=== PATIENT | female | born 1980 | race Asian ===

== ENCOUNTER → 2016-11-30 | Outpatient (CLI) | payer BC ==
[~2016-11-30] MED LIST: CRAN500C2 PO; LETR2TAB PO
--- NOTE | 2016-11-30 09:29 | DIAGNOSTIC IMAGING REPORT ---
HYSTEROSALPINGOGRAM HISTORY: Infertility. FLUOROSCOPY TIME: 0.4 minutes. 5 fluoroscopic images submitted. TECHNIQUE: The cervix was cannulated by the surgery specialist-twister tender paper and water soluble contrast was instilled into the uterus under fluoroscopic guidance. Multiple spot images were obtained. FINDINGS: The uterine cavity is normal in size, shape, and position. The fallopian tubes are patent and there is free peritoneal spill bilaterally. IMPRESSION: Normal hysterosalpingogram. Electronically signed by: Srinivas Felipe M.D. 11/30/2016 9:27 AM
--- NOTE | 2016-11-30 10:10 | OPERATIVE REPORT ---
DATE OF PROCEDURE: 11/30/2016 SURGEON: Isabel Osborne D.O. PREPROCEDURE DIAGNOSIS: Female infertility. POSTPROCEDURE DIAGNOSIS: Same. PROCEDURE: Hystersalpingogram under fluoroscopic guidance. COMPLICATIONS: None. DISPOSITION: Stable and good, discharge to home. INDICATIONS FOR PROCEDURE: The patient is a 35-year-old G1, P0-0-1-0 with history of first trimester loss who is undergoing fertility workup with Dr. Castle who has recommended hystersalpingogram. DESCRIPTION OF PROCEDURE: The patient was positioned comfortably on the table in radiology. All questions were answered. She elected to proceed with the procedure. A speculum was placed in the vagina. Cervix was visualized. Betadine prep was used to cleanse the cervix and vagina. The anterior lip of the cervix was grasped with a single tooth tenaculum. The acorn uterine manipulator was placed in the cervix and the speculum was removed. Water soluble radiopaque dye was injected through the cervix under fluoroscopic guidance with the radiologist present. The uterine cavity appeared normal shape and contour. Bilateral fallopian tubes were noted and were patent as bilateral spill was noted of dye. All instruments were removed from the vagina. Excellent hemostasis was noted. The patient did have some nausea but no vomiting, and otherwise tolerated the procedure well. Following the brief period of nausea, she felt better and was feeling well prior to leaving the x-ray room. She will need to follow up with Dr. Castle in the office for future fertility workup and planning. I attest to the content of the Intraoperative Record and any orders documented therein. Any exceptions are noted below. MTDBrandy
== END | disposition home or self-care (01) ==
LOC: C.RAD 08:47
PROVIDERS: ATTEND Obstetrics & Gynecology
DX: Z31.41 Encounter for fertility testing (principal)

== ENCOUNTER → 2016-12-01 | Outpatient (CLI) | payer BC ==
--- NOTE | 2016-12-01 11:20 | DIAGNOSTIC IMAGING REPORT ---
RIGHT KNEE MRI HISTORY: Right knee pain. COMPARISON STUDY: Right knee 10/11/2016. TECHNIQUE: Multiplanar multisequence MRI of the right knee was performed according to standard department protocol without the use of contrast. FINDINGS: Menisci: The medial meniscus is intact. The lateral meniscus is also likely intact. Question tiny free edge tear at the posterior horn of the lateral meniscus seen on coronal T2 image 16 is not confirmed on additional sequences. Therefore, this may be volume averaging on this sequence. Ligaments: The anterior and posterior cruciate ligaments are intact. The medial and lateral collateral ligaments are normal in appearance. Extensor mechanism: The quadriceps tendon and patellar ligament are intact. Articular cartilage and bone: The articular cartilage is intact, and normal marrow signal intensity is seen throughout the imaged osseous structures. Joint effusion: None. Soft tissues: Intact. IMPRESSION: No evidence for internal derangement within the right knee. Electronically signed by: Srinivas Felipe M.D. 12/01/2016 11:19 AM
== END | disposition home or self-care (01) ==
LOC: C.MRI 10:05
PROVIDERS: ATTEND Family Medicine
DX: M25.561 Pain in right knee (principal)

== ENCOUNTER → 2016-12-23 | Outpatient (CLI) | payer BC ==
[2016-12-23 09:54] LABS: CALCULATED INSULIN SENSITIVITY 0.352; GLUCOSE LOG 1.9685; INSULIN FASTING 7.4 mU/L (3-25); INSULIN LOG 0.8692
[2016-12-23 09:59] LABS: THYROID STIMULATING HORMONE 0.922 uIu/ml (0.300-4.500)
[2016-12-23 10:00] LABS: PROLACTIN 8.64 ng/mL
== END ==
LOC: C.LAB 08:23
PROVIDERS: ATTEND Obstetrics & Gynecology
DX: Z31.41 Encounter for fertility testing (principal)

== ENCOUNTER → 2017-01-05 | Outpatient (CLI) | payer BC | END | disposition home or self-care (01) | LOC: C.PAPS 10:09 | PROVIDERS: ATTEND Obstetrics & Gynecology | DX: Z01.419 Encounter for gynecological examination (general) (routine) without abnormal findings (principal) ==

== ENCOUNTER 2017-07-11 18:17 | Emergency (ER) | payer BC ==
[~2017-07-11] VITALS: Ht 162.6 cm; Wt 62.3 kg
[~2017-07-11 18:17] MED LIST changes: -LETR2TAB PO
[2017-07-11 18:23] VITALS: Ht 162.6 cm; Wt 62.3 kg
--- NOTE | 2017-07-11 19:08 | EMERGENCY ROOM VISIT NOTE ---
History Report prepared by Abby: Ritesh Whitley Under the Supervision of: Dr. Boubacar Soliman D.O. First contact with patient: 18:43 Chief Complaint: SHORTNESS OF BREATH Stated Complaint: SOB,NAUSEA, REACTION TO MEDS History of Present Illness The patient is a 36 year old female who presents to the Emergency Room with complaints of constant shortness of breath starting this morning. The patient states that she has taken a new medication for infertility starting yesterday, and she has had these symptoms since then. She additionally states that she is nauseous, having blurry vision, and some chest pain. The patient states that she took the medication this morning around 0930. Source of History: patient Onset: this morning Position: other (global) Quality: other (shortness of breath) Timing: constant Associated Symptoms: + chest pain, + nausea Note: Associated symptoms: Blurry vision Review of Systems See HPI for pertinent positives & negatives. A total of 10 systems reviewed and were otherwise negative. Past Medical & Surgical Surgical Problems: (1) History of dilatation and curettage Family History Patient reports no known family medical history. Social History Smoking Status: Never Smoker Alcohol Use: none Marital Status: Housing Status: lives with family Occupation Status: employed Current/Historical Medications Scheduled Cranberry (Vaccinium Macrocarp (Cranberry), 1 CAP PO DAILY Physical Exam Vital Signs Date Time Temp Pulse Resp B/P (MAP) Pulse Ox O2 Delivery O2 Flow Rate FiO2 17 18:23 36.4 64 32 130/76 100 Room Air Physical Exam CONSTITUTIONAL/VITAL SIGNS: Reviewed / noted above. GENERAL: Non-toxic in appearance. INTEGUMENTARY: Warm, dry, and [place]. HEAD: Normocephalic. EYES: without scleral icterus or trauma. ENT/OROPHARYNX: clear and moist. LYMPHADENOPATHY/NECK: Is supple without lymphadenopathy or meningismus. RESPIRATORY: Lungs clear and equal. CARDIOVASCULAR: Regular rate and rhythm. GI/ABDOMEN: Soft and nontender. No organomegaly or pulsatile mass. No rebound or guarding. Normal bowel sounds. EXTREMITIES: Warm and well perfused. BACK: No CVA tenderness. NEUROLOGICAL: Intact without focal deficits. PSYCHIATRIC: normal affect. MUSCULOSKELETAL: Normally developed with good muscle tone. Medical Decision & Procedures ED Course 184: Previous medical records were reviewed. The patient was evaluated in room B8. A complete history and physical examination was performed. Medical Decision the differential was considered includes acute myocardial infarction, acute coronary syndrome, myocarditis, pericarditis, pericardial effusions /tamponade, esophageal perforation, thoracic aortic dissection, pulmonary embolism, pneumonia, pneumothorax, pancreatitis, shingles, acute cholecystitis, perforated abdominal viscus. This is a 36-year-old female who presents to the ED with a chief complaint of shortness of breath and a little nausea. The patient feels that she might be having a reaction to medication. She states that she is taking Femara for infertility. The patient states that she developed some difficulty breathing and some blurring of her vision as well as a little nausea and a slight chest pain in the center of her chest this afternoon. She took her medication once yesterday and once earlier this morning. The patient reports that she thinks her symptoms are related to a side effect of the medication. Her vital signs are normal. Her physical exam was normal. I discussed running tests on the patient such as blood work and chest x-ray as well as EKG and possible CT scan of the chest but the patient declined this. She feels that her symptoms are related to a reaction to the medication. I told her that if this was the case, her symptoms should resolve in the next 2-3 days. She was advised to return the emergency Department should she develop worsening or new symptoms. Medication Reconcilliation Current Medication List: was personally reviewed by me Blood Pressure Screening Patient's blood pressure: Normal blood pressure Impression Primary Impression: Dyspnea Additional Impressions: Substernal precordial chest pain Blurred vision Scribe Attestation The scribe's documentation has been prepared under my direction and personally reviewed by me in its entirety. I confirm that the note above accurately reflects all work, treatment, procedures, and medical decision making performed by me. Departure Information Dispostion Home / Self-Care Referrals Naomi Moreland M.D. (PCP) Patient Instructions My [facility] Additional Instructions If symptoms are related to a reaction to your medication, your symptoms should resolve in the next 2-3 days. If symptoms persist, return to the emergency department or follow-up with your doctor for recheck. Return for worsening or new symptoms. Follow-up with your doctor for further care and evaluation in 1-2 days. Return to the emergency department for worsening or new symptoms or any concerns. You have been examined and treated today on an emergency basis only. This is not a substitute for, or an effort to provide, complete comprehensive medical care. It is impossible to recognize and treat all injuries or illnesses in a single emergency department visit. It is therefore important that you follow up closely with your doctor. Call as soon as possible for an appointment. Problem Qualifiers
[2017-07-11 19:15] VITALS: BP 130/76; PULSE 64; TEMP 36.4; O2SAT 100
[2017-07-11] MEDS ORDERED: LETR2TAB PO (19:19)
== END 2017-07-11 19:16 | disposition home or self-care (01) ==
LOC: C.EDB 18:18
DX: R06.00 Dyspnea, unspecified (principal); R07.2 Precordial pain; H53.8 Other visual disturbances; Z98.890 Other specified postprocedural states

== ENCOUNTER → 2017-08-04 | Outpatient (CLI) | payer BC ==
[~2017-08-04] MED LIST changes: -CRAN500C2 PO; +LETR2TAB PO
== END | disposition home or self-care (01) ==
LOC: C.LAB1850 10:35
PROVIDERS: ATTEND Obstetrics & Gynecology
DX: Z32.00 Encounter for pregnancy test, result unknown (principal)

== ENCOUNTER → 2017-08-25 | Outpatient (CLI) | payer BC | END | disposition home or self-care (01) | LOC: C.LAB1850 09:39 | PROVIDERS: ATTEND Obstetrics & Gynecology | DX: O20.9 Hemorrhage in early pregnancy, unspecified (principal) ==

== ENCOUNTER → 2017-09-05 | Outpatient (CLI) | payer BC ==
[2017-09-05 10:09] LABS: BASO % 0.5 %; BASO ABS # 0.04 K/uL (0-0.2); COMPLETE YES; EOS % 1.2 %; HEMATOCRIT 40.3 % (37-47); IG% 0.3 %; LYMPH % 16.6 %; LYMPH ABS # 1.23 K/uL (1.2-3.4); MEAN CELL VOLUME 87.2 fL (80-100); MEAN CORPUSCULAR HEMOGLOBIN 30.1 pg (25-34); MEAN CORPUSCULAR HGB CONC 34.5 g/dl (32-36); MEAN PLATELET VOLUME 9.4 fL (7.4-10.4); MONO % 6.3 %; NEUT % 75.1 %; PLATELET COUNT 282 K/uL (130-400); RED BLOOD COUNT 4.62 M/uL (4.2-5.4); WHITE BLOOD COUNT 7.42 K/uL (4.8-10.8)
[2017-09-05 11:18] LABS: URINE APPEARANCE CLEAR (CLEAR); URINE BILIRUBIN NEG (NEG); URINE COLOR YELLOW; URINE EPITHELIAL CELL AUTO >30 /lpf (0-5); URINE NITRITE NEG (NEG); URINE PH 5.5 (4.5-7.5); URINE SPECIFIC GRAVITY 1.023 (1.000-1.030); UROBILINOGEN NEG (NEG)
[2017-09-05 11:20] LABS: MANUAL MICROSCOPIC REQUIRED? NO; REVIEW REQ? NO
[2017-09-06 14:57] LABS: CHLAMYDIA TRACH RNA*** NOT DETECTED (NOT DETECTED); GC (NEIS GONORRHOEAE)RNA** NOT DETECTED (NOT DETECTED)
== END | disposition home or self-care (01) ==
LOC: C.LAB1850 09:12
PROVIDERS: ATTEND Obstetrics & Gynecology
DX: Z34.91 Encounter for supervision of normal pregnancy, unspecified, first trimester (principal)

== ENCOUNTER → 2017-11-02 | Outpatient (CLI) | payer BC ==
[2017-11-02 13:20] LABS: GTGD 50 Grams
== END | disposition home or self-care (01) ==
LOC: C.LAB1850 11:09
PROVIDERS: ATTEND Obstetrics & Gynecology
DX: O09.512 Supervision of elderly primigravida, second trimester (principal); Z3A.00 Weeks of gestation of pregnancy not specified

== ENCOUNTER → 2017-11-15 | Outpatient (CLI) | payer BC ==
[2017-11-15 16:20] LABS: URINE APPEARANCE CLEAR (CLEAR); URINE BILIRUBIN NEG (NEG); URINE COLOR YELLOW; URINE NITRITE NEG (NEG); URINE PH 6.5 (4.5-7.5); URINE SPECIFIC GRAVITY 1.012 (1.000-1.030); UROBILINOGEN NEG (NEG)
[2017-11-15 16:25] LABS: MANUAL MICROSCOPIC REQUIRED? YES; REVIEW REQ? NO
[2017-11-15 16:55] LABS: URINE BACTERIA 1+ (NEG); URINE RBC 0-4 /hpf (0-4)
== END | disposition home or self-care (01) ==
LOC: C.LABSPEC 15:51
PROVIDERS: ATTEND Obstetrics & Gynecology
DX: O26.899 Other specified pregnancy related conditions, unspecified trimester (principal)

== ENCOUNTER → 2017-11-15 | Outpatient (CLI) | payer BC | END | disposition home or self-care (01) | LOC: C.LAB1850 08:39 | PROVIDERS: ATTEND Obstetrics & Gynecology | DX: O28.1 Abnormal biochemical finding on antenatal screening of mother (principal) ==

== ENCOUNTER 2017-12-09 17:13 | Outpatient (CLI) | payer OTHER | END 2017-12-09 17:40 | disposition home or self-care (01) | LOC: C.OPB 17:13 → C.LD 17:13 → C.OPB 17:40 | PROVIDERS: ATTEND Obstetrics & Gynecology | DX: O36.8120 Decreased fetal movements, second trimester, not applicable or unspecified (principal); Z3A.22 22 weeks gestation of pregnancy ==

== ENCOUNTER 2018-01-17 17:27 | Emergency (ER) | payer OTHER ==
[~2018-01-17] VITALS: Ht 162.6 cm; Wt 75.9 kg
[2018-01-17 17:27] VITALS: TEMP 36.5; O2SAT 98
[2018-01-17] MEDS ORDERED: PRENTAB26 PO (17:48)
--- NOTE | 2018-01-17 18:01 | EMERGENCY ROOM VISIT NOTE ---
History Report prepared by Abby: Ritesh Whitley Under the Supervision of: Dr. Boubacar Holley M.D. First contact with patient: 17:46 Chief Complaint: SHORTNESS OF BREATH Stated Complaint: SOB, DIZZINESS History of Present Illness The patient is a 37 year old female who presents to the Emergency Room with complaints of on and off shortness of breath starting an hour ago which is worsened with walking around. The patient is denying any chest pain or vaginal bleeding. She additionally states that she has some lower abdominal pain last night. The patient reports that she is currently , and she thinks that this has been making it hard to breathe as it grows. She notes that she does not have a past medical history, and she states that earlier in the she had vaginal bleeding. The states that earlier today the patient was in a crowded room earlier with no air circulation. She states that she is feeling better now that she is out of that room. The patient states that she has been taking vitamins. Source of History: patient, spouse/significant other Onset: an hour ago Position: other (global) Quality: other (shortness of breath) Timing: other (on and off) Modifying Factors (Worsening): other (walking around) Associated Symptoms: No chest pain Review of Systems See HPI for pertinent positives & negatives. A total of 10 systems reviewed and were otherwise negative. Past Medical & Surgical Surgical Problems: (1) History of dilatation and curettage Family History Patient reports no known family medical history. Social History Smoking Status: Never Smoker Alcohol Use: none Marital Status: Housing Status: lives with family Occupation Status: employed Current/Historical Medications Scheduled Multivit/Min/Iron/Fol Ac/Pren ( Vitamin), 1 TAB PO DAILY Allergies Coded Allergies: No Known Allergies (Unverified , 01/17/18) Physical Exam Vital Signs Date Time Temp Pulse Resp B/P (MAP) Pulse Ox O2 Delivery O2 Flow Rate FiO2 01/17/18 19:58 74 20 119/79 98 01/17/18 19:30 81 22 119/78 98 Room Air 01/17/18 18:39 83 15 101/73 99 Room Air 01/17/18 17:53 71 01/17/18 17:27 98 Room Air 01/17/18 17:27 36.5 72 16 124/73 98 Room Air 01/17/18 17:27 98 Room Air Physical Exam GENERAL: Patient is a healthy-appearing well-nourished female HEAD: Normocephalic atraumatic EYES: Ocular movements intact pupils equal and react to light OROPHARYNX mucous membranes are moist no exudates present no erythema or edema present NECK: Supple no nuchal rigidity CHEST: Good equal expansion LUNGS: Clear and equal to auscultation CARDIAC: Normal S1 and S2 ABDOMEN: Gravid abdomen. Soft nontender no guarding BACK: No CVA tenderness EXTREMITIES: No pain upon palpation normal muscle strength in all groups no clubbing cyanosis or edema NEURO: Patient is following commands and answering questions appropriately. Alert and oriented x3 Cranial Nerves 2-12 grossly intact Medical Decision & Procedures ER Provider Diagnostic Interpretation: LIMITED (US) CLINICAL HISTORY: Pelvic cramping. Dizziness. COMPARISON STUDY: None. FINDINGS: The cervix is not well visualized due to the shadowing from the head but appears closed. The cervix measures approximately 2.8 cm in length. The fetus is in a cephalic presentation. heart rate is 137 beats per minutes. There is a right posterior lateral placenta. No subchorionic hematoma. anatomic survey was not performed. Amniotic fluid index is 13 cm. The age based on the biparietal diameter, head conference, abdominal or coverage, and length is approximately 28 weeks and 4 days plus or minus one week. Estimated weight is 2 pounds and 10 ounces +/- 6 ounces. IMPRESSION: 1. Single viable 28 week and 4 day intrauterine gestation. heart rate is 137 bpm. 2. No evidence for subchorionic hematoma. 3. Normal amniotic fluid index. 4. The cervix is not well visualized due to artifact from the head but appears closed. The cervical length is approximately 2.8 cm. Electronically signed by: Srinivas Felipe M.D. 01/17/2018 7:29 PM Dictated Date/Time: 01/17/2018 7:26 PM Laboratory Results 01/17/18 18:20 Red Blood Count 3.80, Mean Corpuscular Volume 92.9, Mean Corpuscular Hemoglobin 31.8, Mean Corpuscular Hemoglobin Concent 34.3, Mean Platelet Volume 9.3, Neutrophils (%) (Auto) 75.1, Lymphocytes (%) (Auto) 17.6, Monocytes (%) (Auto) 5.3, Eosinophils (%) (Auto) 1.3, Basophils (%) (Auto) 0.2, Neutrophils # (Auto) 6.56, Lymphocytes # (Auto) 1.54, Monocytes # (Auto) 0.46, Eosinophils # (Auto) 0.11, Basophils # (Auto) 0.02 01/17/18 18:20 Test 01/17/18 18:20 White Blood Count 8.73 K/uL (4.8-10.8) Red Blood Count 3.80 M/uL (4.2-5.4) Hemoglobin 12.1 g/dL (12.0-16.0) Hematocrit 35.3 % (37-47) Mean Corpuscular Volume 92.9 fL (80-100) Mean Corpuscular Hemoglobin 31.8 pg (25-34) Mean Corpuscular Hemoglobin Concent 34.3 g/dl (32-36) Platelet Count 259 K/uL (130-400) Mean Platelet Volume 9.3 fL (7.4-10.4) Neutrophils (%) (Auto) 75.1 % Lymphocytes (%) (Auto) 17.6 % Monocytes (%) (Auto) 5.3 % Eosinophils (%) (Auto) 1.3 % Basophils (%) (Auto) 0.2 % Neutrophils # (Auto) 6.56 K/uL (1.4-6.5) Lymphocytes # (Auto) 1.54 K/uL (1.2-3.4) Monocytes # (Auto) 0.46 K/uL (0.11-0.59) Eosinophils # (Auto) 0.11 K/uL (0-0.5) Basophils # (Auto) 0.02 K/uL (0-0.2) RDW Standard Deviation 43.1 fL (36.4-46.3) RDW Coefficient of Variation 12.7 % (11.5-14.5) Immature Granulocyte % (Auto) 0.5 % Immature Granulocyte # (Auto) 0.04 K/uL (0.00-0.02) Urine Color YELLOW Urine Appearance CLEAR (CLEAR) Urine pH 7.0 (4.5-7.5) Urine Specific [place] <= 1.005 (1.000-1.030) Urine Protein NEG (NEG) Urine Glucose (UA) NEG (NEG) Urine Ketones NEG (NEG) Urine Occult Blood NEG (NEG) Urine Nitrite NEG (NEG) Urine Bilirubin NEG (NEG) Urine Urobilinogen NEG (NEG) Urine Leukocyte Esterase NEG (NEG) Anion Gap 6.0 mmol/L (3-11) Est Creatinine Clear Calc Drug Dose 120.8 ml/min Estimated GFR () 131.9 Estimated GFR (Non- 113.8 BUN/Creatinine Ratio 14.2 (10-20) Calcium Level 8.9 mg/dl (8.5-10.1) Total Bilirubin 0.2 mg/dl (0.2-1) Aspartate Amino Transf (AST/SGOT) 12 U/L (15-37) Alanine Aminotransferase (ALT/SGPT) 14 U/L (12-78) Alkaline Phosphatase 75 U/L (45-117) Total Protein 6.9 gm/dl (6.4-8.2) Albumin 3.0 gm/dl (3.4-5.0) Globulin 3.9 gm/dl (2.5-4.0) Albumin/Globulin Ratio 0.8 (0.9-2) Labs reviewed by ED physician. ECG Per My Interpretation Indication: SOB/dyspnea Rate (beats per minute): 76 Rhythm: normal sinus Findings: other (Normal axis. No ST elevation or depression) ED Course 1745: Past medical records reviewed. The patient was evaluated in room C11. A complete history and physical examination was performed. I offered to do an X- ray and CT, and the patient declines. 1940: Upon reexamination the patient is doing well. I discussed results and treatment plan with the patient. She verbalizes agreement and understanding. The patient is ready for discharge. Medical Decision Differential diagnosis: Etiologies such as infections, reactive airway disease, pneumonia, pneumothorax , COPD, CHF, cardiac ischemia, pulmonary embolism, musculoskeletal, gastrointestinal, as well as others were entertained. This is a 37-year-old female who presents emergency department complaining of shortness of breath. The patient reports she was in a office meeting when she became very stuffy and congested. The symptoms resolved immediately after getting outside of the room. The patient is just here to check on her baby she is refusing x-rays of her chest as well as CAT scan of her chest. The patient was sent for an ultrasound which did not show any issues with the baby. She was discharged follow-up with OB. Medication Reconcilliation Current Medication List: was personally reviewed by me Blood Pressure Screening Patient's blood pressure: Normal blood pressure Impression Primary Impression: Additional Impression: Dyspnea Scribe Attestation The scribe's documentation has been prepared under my direction and personally reviewed by me in its entirety. I confirm that the note above accurately reflects all work, treatment, procedures, and medical decision making performed by me. Departure Information Dispostion Home / Self-Care Referrals Naomi Moreland M.D. (PCP) Forms HOME CARE DOCUMENTATION FORM, IMPORTANT VISIT INFORMATION, School Instructions, Work Instructions Patient Instructions My [facility] Additional Instructions Follow up with OB You have been examined and treated today on an emergency basis only. This is not a substitute for, or an effort to provide, complete comprehensive medical care. It is impossible to recognize and treat all injuries or illnesses in a single emergency department visit. It is therefore important that you follow up closely with Dr Moreland. Call as soon as possible for an appointment. Thank you for your time and consideration. I look forward to speaking with you again soon. Please don't hesitate to call us if you have any questions. Problem Qualifiers Primary Impression: Weeks of gestation: unspecified Qualified Codes: Z34.90 - Encounter for supervision of normal , unspecified, unspecified trimester Additional Impression: Dyspnea Dyspnea type: unspecified Qualified Codes: R06.00 - Dyspnea, unspecified
[2018-01-17 18:09] VITALS: Ht 162.6 cm; Wt 75.9 kg
[2018-01-17 18:34] LABS: BASO % 0.2 %; BASO ABS # 0.02 K/uL (0-0.2); EOS % 1.3 %; EOS ABS # 0.11 K/uL (0-0.5); HEMATOCRIT 35.3 % (37-47); HEMOGLOBIN 12.1 g/dL (12.0-16.0); IG# 0.04 K/uL (0.00-0.02); LYMPH % 17.6 %; LYMPH ABS # 1.54 K/uL (1.2-3.4); MEAN CELL VOLUME 92.9 fL (80-100); MEAN CORPUSCULAR HEMOGLOBIN 31.8 pg (25-34); MEAN CORPUSCULAR HGB CONC 34.3 g/dl (32-36); MEAN PLATELET VOLUME 9.3 fL (7.4-10.4); MONO % 5.3 %; MONO ABS # 0.46 K/uL (0.11-0.59); NEUT % 75.1 %; NEUT ABS # 6.56 K/uL (1.4-6.5); PLATELET COUNT 259 K/uL (130-400); RED CELL DISTRIBUTION WIDTH CV 12.7 % (11.5-14.5); RED CELL DISTRIBUTION WIDTH SD 43.1 fL (36.4-46.3); WHITE BLOOD COUNT 8.73 K/uL (4.8-10.8)
[2018-01-17 18:50] LABS: CALCIUM 8.9 mg/dl (8.5-10.1); CREATININE 0.63 mg/dl (0.60-1.20); POTASSIUM 3.5 mmol/L (3.5-5.1)
[2018-01-17 18:53] LABS: TOTAL PROTEIN 6.9 gm/dl (6.4-8.2)
--- NOTE | 2018-01-17 19:30 | DIAGNOSTIC IMAGING REPORT ---
LIMITED (US) CLINICAL HISTORY: Pelvic cramping. Dizziness. COMPARISON STUDY: None. FINDINGS: The cervix is not well visualized due to the shadowing from the head but appears closed. The cervix measures approximately 2.8 cm in length. The fetus is in a cephalic presentation. heart rate is 137 beats per minutes. There is a right posterior lateral placenta. No subchorionic hematoma. anatomic survey was not performed. Amniotic fluid index is 13 cm. The age based on the biparietal diameter, head conference, abdominal or coverage, and length is approximately 28 weeks and 4 days plus or minus one week. Estimated weight is 2 pounds and 10 ounces +/- 6 ounces. IMPRESSION: 1. Single viable 28 week and 4 day intrauterine gestation. heart rate is 137 bpm. 2. No evidence for subchorionic hematoma. 3. Normal amniotic fluid index. 4. The cervix is not well visualized due to artifact from the head but appears closed. The cervical length is approximately 2.8 cm. Electronically signed by: Srinivas Felipe M.D. 01/17/2018 7:29 PM Dictated Date/Time: 01/17/2018 7:26 PM
[2018-01-17 19:58] VITALS: BP 119/79; PULSE 74; O2SAT 98
== END 2018-01-17 19:55 | disposition home or self-care (01) ==
LOC: EDBD 17:27 → C.EDC 17:28
DX: Z34.93 Encounter for supervision of normal pregnancy, unspecified, third trimester (principal); R06.00 Dyspnea, unspecified

== ENCOUNTER → 2018-01-24 | Outpatient (CLI) | payer OTHER ==
[~2018-01-24] MED LIST changes: -LETR2TAB PO; +PRENTAB26 PO
[2018-01-24 15:35] LABS: HEMATOCRIT 32.6 % (37-47); HEMOGLOBIN 11.3 g/dL (12.0-16.0)
== END | disposition home or self-care (01) ==
LOC: C.LAB1850 14:43
PROVIDERS: ATTEND Obstetrics & Gynecology
DX: O09.513 Supervision of elderly primigravida, third trimester (principal)

== ENCOUNTER 2018-03-22 11:34 | Emergency (ER) | payer OTHER ==
[~2018-03-22] VITALS: Ht 162.6 cm; Wt 75.2 kg
[2018-03-22 11:56] VITALS: TEMP 36.7; Ht 162.6 cm; Wt 75.2 kg
[2018-03-22 12:00] VITALS: O2SAT 98
--- NOTE | 2018-03-22 12:25 | DIAGNOSTIC IMAGING REPORT ---
CHEST ONE VIEW PORTABLE CLINICAL HISTORY: Atypical chest pain and shortness of breath COMPARISON STUDY: No previous studies for comparison. FINDINGS: The cardiac and mediastinal contours are normal. There is no evidence of focal pulmonary consolidation. There is no evidence of failure. No pleural effusions are visualized.[ IMPRESSION: No active disease in the chest. Electronically signed by: Aguila Mac M.D. 03/22/2018 12:24 PM Dictated Date/Time: 03/22/2018 12:23 PM
[2018-03-22 12:37] LABS: BASO % 0.1 %; BASO ABS # 0.01 K/uL (0-0.2); EOS % 0.7 %; EOS ABS # 0.05 K/uL (0-0.5); HEMATOCRIT 40.2 % (37-47); HEMOGLOBIN 13.9 g/dL (12.0-16.0); IG# 0.03 K/uL (0.00-0.02); LYMPH % 15.4 %; LYMPH ABS # 1.09 K/uL (1.2-3.4); MEAN CELL VOLUME 92.2 fL (80-100); MEAN CORPUSCULAR HEMOGLOBIN 31.9 pg (25-34); MEAN CORPUSCULAR HGB CONC 34.6 g/dl (32-36); MEAN PLATELET VOLUME 9.4 fL (7.4-10.4); MONO % 6.1 %; MONO ABS # 0.43 K/uL (0.11-0.59); NEUT % 77.3 %; NEUT ABS # 5.47 K/uL (1.4-6.5); PLATELET COUNT 226 K/uL (130-400); RED CELL DISTRIBUTION WIDTH CV 12.9 % (11.5-14.5); WHITE BLOOD COUNT 7.08 K/uL (4.8-10.8)
[2018-03-22 12:57] LABS: ALBUMIN 3.2 gm/dl (3.4-5.0); ALT/SGPT 18 U/L (12-78); AST/SGOT 16 U/L (15-37); BLOOD UREA NITROGEN 8 mg/dl (7-18); CARBON DIOXIDE 23 mmol/L (21-32); CREATININE 0.67 mg/dl (0.60-1.20); GLUCOSE 73 mg/dl (70-99); POTASSIUM 3.6 mmol/L (3.5-5.1); SODIUM 136 mmol/L (136-145)
[2018-03-22 13:02] LABS: ALKALINE PHOSPHATASE 167 U/L (45-117); TOTAL PROTEIN 7.7 gm/dl (6.4-8.2)
--- NOTE | 2018-03-22 13:05 | EMERGENCY ROOM VISIT NOTE ---
History First contact with patient: 11:52 Chief Complaint: SHORTNESS OF BREATH Stated Complaint: DIFFICULTY BREATHING 36 WEEKS PREG Nursing Triage Summary: sent by obgyn for rule out of p/e pt reports sob and leg cramps History of Present Illness The patient is a 37 year old female who presents to the Emergency Room with complaints of intermittent shortness of breath and chest pain over the last 3 months. The patient started experiencing the symptoms this morning around 9 AM. She is 36 weeks . The patient was on her way to her OB appointment when the symptoms started. She reports that the pain is worse with deep inspiration. She also complains of bilateral leg pain/cramping particularly at night over the last several months. No fever, cough or chills. The patient had a pelvic exam this morning. The cervix is reportedly closed. heart rate also reportedly appropriate. This is the patient's first . She denies any vaginal bleeding or abdominal cramping. The patient was sent from the OB office for further evaluation Review of Systems 10 system review performed and negative unless noted in HPI or below Past Medical/Surgical History Surgical Problems: (1) History of dilatation and curettage Family History Patient reports no known family medical history. Social History Smoking Status: Never Smoker Alcohol Use: none Marital Status: Housing Status: lives with family Occupation Status: employed Current/Historical Medications Scheduled Multivit/Min/Iron/Fol Ac/Pren ( Vitamin), 1 TAB PO DAILY Physical Exam Vital Signs Date Time Temp Pulse Resp B/P (MAP) Pulse Ox O2 Delivery O2 Flow Rate FiO2 03/22/18 16:35 82 16 130/74 98 Room Air 03/22/18 15:39 83 15 96 03/22/18 13:39 104 21 97 03/22/18 13:34 105 17 97 03/22/18 13:04 101 16 97 03/22/18 12:55 85 18 102/66 97 Room Air 03/22/18 12:54 102/66 03/22/18 12:34 79 20 98 03/22/18 12:30 76 03/22/18 12:00 98 Room Air 03/22/18 11:59 99 Room Air 03/22/18 11:56 36.7 70 21 130/72 99 Room Air 03/22/18 11:53 130/72 Physical Exam VITALS: Vitals are noted on the nurse's note and reviewed by myself. Vital signs stable. GENERAL: 37-year-old female, in no acute distress, nondiaphoretic, well- developed well-nourished. SKIN: The skin was without rashes, erythema, edema, or bruising. . HEAD: Normocephalic atraumatic. MOUTH: Mucous membranes moist. NECK: Supple without nuchal rigidity. No JVD. HEART: Regular rate and rhythm without murmurs gallops or rubs. LUNGS: Clear to auscultation bilaterally without wheezes, rales or rhonchi. No accessory muscle use. ABDOMEN: Gravid positive bowel sounds x 4., nontender, MUSCULOSKELETAL: No muscle atrophy, erythema, or edema noted. Mild tenderness to palpation in the right calf. Strength 5/5 throughout. NEURO: Patient was alert and oriented to person place and time. Normal sensation to touch. No focal neurological deficits. Medical Decision & Procedures ER Provider Diagnostic Interpretation: CXR IMPRESSION: No active disease in the chest. Electronically signed by: Aguila Mac M.D. 03/22/2018 12:24 PM Dictated Date/Time: 03/22/2018 12:23 PM The status of this report is Signed. Draft = Not yet reviewed or approved by Radiologist. Signed = Reviewed and approved by Radiologist. Lower extremity ultrasound bilaterally IMPRESSION: No evidence of lower extremity DVT. Electronically signed by: Aguila Mac M.D. 03/22/2018 2:14 PM Dictated Date/Time: 03/22/2018 2:14 PM The status of this report is Signed. Draft = Not yet reviewed or approved by Radiologist. Signed = Reviewed and approved by Radiologist. Laboratory Results 03/22/18 12:20 Red Blood Count 4.36, Mean Corpuscular Volume 92.2, Mean Corpuscular Hemoglobin 31.9, Mean Corpuscular Hemoglobin Concent 34.6, Mean Platelet Volume 9.4, Neutrophils (%) (Auto) 77.3, Lymphocytes (%) (Auto) 15.4, Monocytes (%) (Auto) 6.1, Eosinophils (%) (Auto) 0.7, Basophils (%) (Auto) 0.1, Neutrophils # (Auto) 5.47, Lymphocytes # (Auto) 1.09, Monocytes # (Auto) 0.43, Eosinophils # (Auto) 0.05, Basophils # (Auto) 0.01 03/22/18 12:20 Test 03/22/18 12:17 03/22/18 12:20 Urine Color YELLOW Urine Appearance CLEAR (CLEAR) Urine pH 6.5 (4.5-7.5) Urine Specific [place] 1.005 (1.000-1.030) Urine Protein NEG (NEG) Urine Glucose (UA) NEG (NEG) Urine Ketones TRACE (NEG) Urine Occult Blood NEG (NEG) Urine Nitrite NEG (NEG) Urine Bilirubin NEG (NEG) Urine Urobilinogen NEG (NEG) Urine Leukocyte Esterase NEG (NEG) White Blood Count 7.08 K/uL (4.8-10.8) Red Blood Count 4.36 M/uL (4.2-5.4) Hemoglobin 13.9 g/dL (12.0-16.0) Hematocrit 40.2 % (37-47) Mean Corpuscular Volume 92.2 fL (80-100) Mean Corpuscular Hemoglobin 31.9 pg (25-34) Mean Corpuscular Hemoglobin Concent 34.6 g/dl (32-36) Platelet Count 226 K/uL (130-400) Mean Platelet Volume 9.4 fL (7.4-10.4) Neutrophils (%) (Auto) 77.3 % Lymphocytes (%) (Auto) 15.4 % Monocytes (%) (Auto) 6.1 % Eosinophils (%) (Auto) 0.7 % Basophils (%) (Auto) 0.1 % Neutrophils # (Auto) 5.47 K/uL (1.4-6.5) Lymphocytes # (Auto) 1.09 K/uL (1.2-3.4) Monocytes # (Auto) 0.43 K/uL (0.11-0.59) Eosinophils # (Auto) 0.05 K/uL (0-0.5) Basophils # (Auto) 0.01 K/uL (0-0.2) RDW Standard Deviation 43.0 fL (36.4-46.3) RDW Coefficient of Variation 12.9 % (11.5-14.5) Immature Granulocyte % (Auto) 0.4 % Immature Granulocyte # (Auto) 0.03 K/uL (0.00-0.02) Anion Gap 6.0 mmol/L (3-11) Est Creatinine Clear Calc Drug Dose 113.1 ml/min Estimated GFR () 129.2 Estimated GFR (Non- 111.5 BUN/Creatinine Ratio 12.4 (10-20) Calcium Level 9.0 mg/dl (8.5-10.1) Total Bilirubin 0.3 mg/dl (0.2-1) Aspartate Amino Transf (AST/SGOT) 16 U/L (15-37) Alanine Aminotransferase (ALT/SGPT) 18 U/L (12-78) Alkaline Phosphatase 167 U/L (45-117) Troponin I < 0.015 ng/ml (0-0.045) Total Protein 7.7 gm/dl (6.4-8.2) Albumin 3.2 gm/dl (3.4-5.0) Globulin 4.5 gm/dl (2.5-4.0) Albumin/Globulin Ratio 0.7 (0.9-2) ECG Per My Interpretation Indication: chest pain Rate (beats per minute): 84 Rhythm: normal sinus ED Course Patient was seen and examined Vital signs including blood pressure were reviewed medications list was verified with patient Labs were obtained, and a saline lock was established An EKG was performed. The patient was put on a monitor. A chest x-ray was performed The patient was reassessed and resting comfortably. We discussed her workup. We discussed the possibility of a CT scan. The patient and the patient's significant other declined The case was also discussed with Dr. Hunter. It was also discussed my supervising physician who is in agreement with my plan I reviewed discharge instructions the patient. They voiced understanding and had no further questions. Medical Decision Differential diagnosis: Shortness of breath associated with , pulmonary edema, pulmonary embolus, pneumothorax, cardiac arrhythmia, anemia, anxiety, panic attack, This patient is a 37-year-old female, 36 weeks , that was sent to the emergency department for evaluation of shortness of breath and chest pain. Upon further discussion, the symptoms have been going on for several months. She was not tachycardic or hypoxic. Her lungs were clear. She is not severely anemic. Her EKG shows normal sinus rhythm with no signs of ischemia or infarction. I believe that some of her symptoms are likely due to the itself on top of some anxiety. I have a very low suspicion of pulmonary embolus. Bilateral lower extremities performed and negative for DVT. I offered the patient is CT to rule out pulmonary embolus. She and her partner declined, which I think is reasonable. This chart was completed in part utilizing meebee Speech Voice Recognition software. Attempts were made to minimize the grammatical errors, random word insertions, pronoun errors and incomplete sentences. Any formal questions or concerns about the content, text or information contained within the body of this dictation should be directly addressed to the provider for clarification. Consults Consulting Physician: Dr. Hunter Impression Primary Impression: Shortness of breath Departure Information Dispostion Home / Self-Care Condition GOOD Referrals Naomi Moreland M.D. (PCP) Janell Briones MD Patient Instructions My [facility] Additional Instructions You have been seen in the emergency department for chest pain and shortness of breath. No significant abnormalities were found in your blood work, EKG or chest x-ray today. You have declined a CT of the chest for further evaluation of blood clot due to the radiation exposure Please call the [facility] doctor in the morning for a follow-up appointment. You need to be seen in the office tomorrow for a group B strep swab Please continue current medications. Stay well-hydrated. Do not hesitate to return to the emergency department with any new, worsening or concerning symptom
--- NOTE | 2018-03-22 14:15 | DIAGNOSTIC IMAGING REPORT ---
ULTRASOUND VENOUS DOPPLER LWR EXT BILA CLINICAL HISTORY: Bilateral leg swelling. Bilateral leg pain. . COMPARISON STUDY: No previous studies for comparison. FINDINGS: Real-time and color flow Doppler imaging were performed. Flow was seen within the femoral, popliteal and calf veins with no intraluminal thrombus demonstrated. The saphenous vein is patent. IMPRESSION: No evidence of lower extremity DVT. Electronically signed by: Aguila Mac M.D. 03/22/2018 2:14 PM Dictated Date/Time: 03/22/2018 2:14 PM
[2018-03-22 16:35] VITALS: BP 130/74; PULSE 82; O2SAT 98
== END 2018-03-22 16:36 | disposition home or self-care (01) ==
LOC: C.EDB 11:36 → C.EDC 16:36
DX: R06.02 Shortness of breath (principal); Z33.1 Pregnant state, incidental; Z79.899 Other long term (current) drug therapy

== ENCOUNTER → 2018-03-23 | Outpatient (CLI) | payer OTHER | END | disposition home or self-care (01) | LOC: C.LABSPEC 15:48 | PROVIDERS: ATTEND Obstetrics & Gynecology | DX: O09.513 Supervision of elderly primigravida, third trimester (principal) ==

== ENCOUNTER 2018-04-04 22:30 | Outpatient (CLI) | payer OTHER ==
[~2018-04-04] VITALS: Ht 165.1 cm; Wt 73.6 kg
[2018-04-05 00:05] VITALS: Ht 165.1 cm; Wt 73.6 kg
== END 2018-04-05 00:25 | disposition home or self-care (01) ==
LOC: C.LD 22:30 → C.OPB 22:30
PROVIDERS: ATTEND Obstetrics & Gynecology
DX: O26.899 Other specified pregnancy related conditions, unspecified trimester (principal); Z3A.00 Weeks of gestation of pregnancy not specified

== ENCOUNTER 2018-04-13 01:22 | Inpatient (IN) | payer OTHER ==
[~2018-04-13] VITALS: Ht 165.1 cm; Wt 73.0 kg
[2018-04-13] MEDS ORDERED: LACTATED RINGER'S 1000ML 1,000 ML IV PRN (02:10)
[2018-04-13 02:41] LABS: HEMATOCRIT 37.2 % (37-47); HEMOGLOBIN 12.9 g/dL (12.0-16.0); MEAN CELL VOLUME 91.2 fL (80-100); MEAN CORPUSCULAR HEMOGLOBIN 31.6 pg (25-34); MEAN CORPUSCULAR HGB CONC 34.7 g/dl (32-36); MEAN PLATELET VOLUME 9.3 fL (7.4-10.4); PLATELET COUNT 222 K/uL (130-400); RED CELL DISTRIBUTION WIDTH CV 12.8 % (11.5-14.5); RED CELL DISTRIBUTION WIDTH SD 42.4 fL (36.4-46.3)
[2018-04-13 02:57] VITALS: Ht 165.1 cm; Wt 73.0 kg
[2018-04-13] MEDS ORDERED: BUPIVACAINE 0.25% 30 ML VIAL ONE (03:23)
[2018-04-13] MEDS ORDERED: EpHEDrine SULFATE INJ 50 MG/ML AMP ONE (03:23)
[2018-04-13] MEDS ORDERED: FENTANYL CITRATE INJ 50 MCG/1 ML 2 ML VIAL ONE (03:24)
[2018-04-13] MEDS ORDERED: FENTANYL 2MCG/ML ROPIV 1.25MG/ML 100ML BAG ONE (03:25)
[2018-04-13] MEDS: LACTATED RINGER'S 1000ML 1,000 ML IV SCH ×3 (04:05→13:26)
[2018-04-13] MEDS ORDERED: NALOXONE HCL INJ 1 MG in SODIUM CHLORIDE 0.9% 1000ML 1,000 ML IV PRN ×4 (04:11)
[2018-04-13] MEDS ORDERED: LACTATED RINGER'S 1000ML 500 ML IV PRN ×2 (04:11→04:46)
[2018-04-13] MEDS ORDERED: EpHEDrine SULFATE INJ 50 MG/ML AMP IV PRN (04:15)
[2018-04-13] MEDS ORDERED: NALBUPHINE HCL INJ 10 MG/ML AMP IV PRN (04:15)
[2018-04-13] MEDS ORDERED: NALOXONE HCL INJ 0.4 MG/1 ML VIAL/CARP IV PRN (04:15)
[2018-04-13] MEDS ORDERED: PROMETHAZINE HCL INJ 25 MG in SODIUM CHLORIDE 0.9% 50ML 50 ML IV PRN (04:15)
[2018-04-13] MEDS ORDERED: ONDANSETRON INJ 2 MG/ML 2 ML VIAL IV PRN (04:15)
[2018-04-13] MEDS ORDERED: DiphenhydrAMINE HCL 50 MG/ML VIAL IV PRN (04:15)
[2018-04-13] MEDS ORDERED: OXYTOCIN 30 UNITS/500ML NSS IV PRN ×2 (05:00→17:15)
[2018-04-13] MEDS: FENTANYL 2MCG/ML ROPIV 1.25MG/ML 100ML BAG EPI PRN ×3 (07:05→14:54)
[2018-04-13] MEDS ORDERED: BENZOCAINE 20% AER SPR 82.5 GM CAN EXT PRN (17:15)
[2018-04-13] MEDS ORDERED: HYDROCORTISONE ACETATE 25 MG SUPP PR PRN (17:15)
[2018-04-13] MEDS ORDERED: DIPHTHERIA/TETANUS/PERTUSSIS 0.5 ML SYR/VIAL IM. ONE (17:15)
[2018-04-13] MEDS ORDERED: LANOLIN OINT EXT PRN (17:15)
[2018-04-13] MEDS ORDERED: ACETAMINOPHEN/CODEINE 300/30MG TAB PO PRN ×2 (17:15)
[2018-04-13] MEDS ORDERED: ACETAMINOPHEN 325 MG TAB PO PRN (17:15)
[2018-04-13] MEDS ORDERED: SUPERCREAM 0.870 % 15GM JAR EXT PRN (17:15)
--- NOTE | 2018-04-13 17:41 | Anesthesia Procedure Note ---
Anesthesia Epidural Removal Nt Date & Time April 13, 2018 at 17:41 Vital Signs Pain Intensity: 0.0 Notes Mental Status: alert / awake / arousable, participated in evaluation Nausea / Vomiting: adequately controlled Pain: adequately controlled Airway Patency, RR, SpO2: stable & adequate BP & HR: stable & adequate Hydration State: stable & adequate Neuraxial Anesthesia: was administered, sensory block is resolving Anesthetic Complications: no major complications apparent, pt satisfied with anesthetic care Epidural: removed without complications, with tip intact
--- NOTE | 2018-04-13 18:48 | DELIVERY SUMMARY ---
DATE OF OPERATION: 04/13/2018 FINDINGS: Viable male with Apgars of 8 and 9. Baby delivered over a midline second degree laceration by vacuum extraction for maternal exhaustion. Cord gases and cord blood samples obtained. Placenta delivered spontaneously. Laceration repaired with 4-0 Vicryl in a routine fashion. ESTIMATED BLOOD LOSS: 300 mL. LABOR NOTE: Patient is a 37-year-old 3, para 1 with an EDC of 14 April at 39+ weeks gestational age who presented to labor and delivery with spontaneous ruptured membranes. Patient states that she had been leaking since a little after midnight. The patient's course was remarkable for diet-controlled gestational diabetes, blood type B positive, antibody negative, rubella immune, hepatitis B negative. She had a negative cell-free DNA screening and a negative third trimester beta strep culture. Upon admission, patient was noted to be 3-4 cm dilated 80% of effaced 0 station grossly ruptured. heart rate tracing was category 1. The patient was managed expectantly. She became more uncomfortable. Anesthesia was consulted and an epidural was placed. Following placement of the epidural, her contractions had spaced out and Pitocin augmentation was initiated. Delivering physician assumed care of the patient. Over the next 8 hours, progressed to full dilatation and began her second stage. The patient pushed for 3 hours, bringing the vertex down to the perineum at which point the patient was exhausted and could not push effectively any more. Verbal consent was obtained and over the next contraction a viable male infant was delivered over midline second-degree laceration. Cord was clamped and cut. Cord gases and cord blood samples were obtained. Placenta was delivered spontaneously. Laceration was repaired with 4-0 Vicryl in routine fashion. Estimated blood loss 300 mL. Sponge and needle count was correct. I attest to the content of the Intraoperative Record and any orders documented therein. Any exception s are noted below.
[2018-04-13 20:00] VITALS: BP 114/72; PULSE 82; TEMP 36.8; O2SAT 95
[2018-04-13 23:30] VITALS: BP 107/64; PULSE 83; TEMP 36.6; O2SAT 96
[2018-04-14 03:00] VITALS: BP 106/69; PULSE 88; TEMP 36.4; O2SAT 98
--- NOTE | 2018-04-14 06:31 | Progress Note ---
Subjective April 14, 2018. Subjective conversation w/ patient Ambulation: ambulating normally Voiding: no voiding problems Diet Tolerance: Regular Diet Lochia: Moderate Feeding Type: Breast Feeding Pain: Perineal pain reported Review of Systems Constitutional: No fever, No chills Respiratory: No shortness of breath Cardiac: No chest pain Female : + dysuria Objective Vital Signs Date Time Temp Pulse Resp B/P (MAP) Pulse Ox O2 Delivery O2 Flow Rate FiO2 04/14/18 03:00 36.4 88 16 106/69 (81) 98 Room Air 04/13/18 23:30 36.6 83 18 107/64 (78) 96 Room Air 04/13/18 23:30 Room Air 04/13/18 20:00 36.8 82 20 114/72 (86) 95 Room Air 04/13/18 20:00 95 Room Air Physical Exam General Appearance: WELL-APPEARING, WD/WN, NO APPARENT DISTRESS Respiratory/Chest: lungs clear, normal breath sounds Cardiovascular: regular rate, rhythm Abdomen: soft Fundus: Firm, Non-Tender, Relation to Umbilicus (at u) Extremities: no pedal edema, no calf tenderness Laboratory Results Last 24 Hours Test 04/13/18 06:35 04/13/18 08:23 04/13/18 10:52 04/13/18 13:28 Bedside Glucose 90 mg/dl 91 mg/dl 81 mg/dl 88 mg/dl Test 04/14/18 06:18 Assessment and Plan Problem List Medical Problems: (1) Blurred vision Status: Acute (2) Dyspnea Status: Acute (3) Dyspnea Status: Acute (4) Status: Acute (5) SOB (shortness of breath) Status: Acute (6) Substernal precordial chest pain Status: Acute Post- Day#: 1 Continue Routine Care: 37F s/p NVD day 1 - B+, Rubella Immune, GBS -ve - pt doing well clinically - Vital signs reviewed and WNL - Encourage ambulation, monitor and control pain with Motrin PRN - Encourage breast feeding Resident Physician Supervision Note: I interviewed and examined the patient. Discussed with Dr. Trevizo and agree with findings and plan as documented in the note. Any exceptions or clarifications are listed here: Discussed delivery with patient and care Documented By: Wilmer Rand Resident Tracking Resident Involvement: Resident Care Provided Care Provided: OB Delivery
--- NOTE | 2018-04-14 06:58 | Discharge Instructions ---
Discharge Instructions Date of Service April 14, 2018. Admission Reason for Admission: LABOR Discharge Discharge Diagnosis / Problem: Vaginal Delivery Discharge Goals Goal(s): Routine recovery after delivery Medications Continue Dispensed Medications: supercream, dermaplast, tucks, lansinoh Activity Recommendations Activity Limitations: per Instructions/Follow-up section . Instructions / Follow-Up Instructions / Follow-Up ACTIVITY RECOMMENDATIONS: * Gradual return to full activity over the next 2-3 weeks. * No lifting - nothing heavier than baby over the next 2-3 weeks. * Do not engage in vigorous exercise, sexual activity or sports until cleared by your physician. * Do not drive or operate any motorized equipment until cleared by your physician. * You may shower/bathe daily. MEDICATIONS: For discomfort or pain, you may use Acetaminophen (Tylenol), Ibuprofen (Advil), or Naproxen (Aleve) following the package directions. For constipation you may use Colace following the package directions. BREAST CARE: If you are not breast feeding: * Wear a supportive bra 24 hours a day for one to two weeks. * Avoid stimulating your breasts and nipples as much as possible during the first few weeks after delivery. * When taking a shower, have the warm water hit your back, not breasts. * When your breasts feel full, apply ice packs. Usually three to four times a day helps ease the discomfort. * Take a mild pain medication (Tylenol / Motrin) when you are uncomfortable. If breast feeding: * Use breast milk to lubricate nipples. Lansinoh cream may be used for sore nipples. You do not need to remove cream prior to breast feeding. If using a different brand of cream, check the label for directions regarding removal of cream prior to nursing. * Wear a supportive bra. * If having problems with breasts or breast feeding, call a multi site leasing consultant or your health care provider. EPISIOTOMY CARE: After delivery, if you have an episiotomy (stitches), the following steps will ease discomfort and aid healing. * For the first 24 hours after delivery, place ice packs next to your episiotomy to help reduce swelling. * After the first 24 hour-period, sitz baths, either portable or in the tub, are suggested. A shower with a shower arm sprayed over the episiotomy may be comforting. * Nevaeh care should be done after each voiding and bowel movement. Squirt warm water from a plastic bottle over the perineum (region of the body between the anus and urinary opening) and pat dry. * Use Dermoplast to ease discomfort. Shake container. Alpine directly over the episiotomy. Place a Tucks on a clean sanitary pad next to your episiotomy. SPECIAL CARE INSTRUCTIONS: When you are discharged from the hospital, it is important for you to follow the instructions listed below: * During the first week at home, you should be able to care for yourself and your baby. In addition, the usual light household activities are encouraged. * Limit your activities to the way you feel. Do not try to clean the house or move furniture. Be sensible. * If you actively engage in sports and have done so up until the time of your delivery, you may resume these activities as soon as you feel able. This may take up to one month or even longer. Use good judgment. * Continue to take your vitamins for at least six weeks after the of your baby. * Your diet need not be limited unless you were on a special diet before your delivery. Breast-feeding mothers need around 2500 calories per day and at least 64-80 ounces of fluid per day (8 to 10 glasses). * You should eat foods from the four major food groups. Crash diets or fad diets are to be avoided. Eating lean meats, fresh fruits and vegetables, low-fat dairy products, high fiber foods and a regular exercise program, will help you get back to your pre- weight without putting your health at risk. * Constipation is sometimes a problem after delivery. Take a mild laxative as needed. If breast feeding, Milk of Magnesia is acceptable to use. You may use a suppository or Fleets enema if no episiotomy. * A daily shower or tub bath is suggested. Be sure to thoroughly and gently dry the perineum. * A bloody vaginal discharge will usually continue until around four weeks post . A small amount of bleeding may continue for as long as six weeks. Vaginal discharge changes from the bright red bleeding after delivery to pink then brownish and finally yellowish-pink before becoming white and disappearing. * Bleeding may increase with activity. Your first period may come in 4-8 weeks. If you are breast feeding, your period may be delayed even longer. * Regent (sex) can begin whenever both you and your partner feel comfortable and do not have any form of genital infection. It is recommended that you wait at least six weeks for internal and external healing to occur. If you have questions, please talk to your health care practitioner. A condom should be used to prevent infection and . * Foreplay, gentle intercourse and lubrication is very important the first several times to prevent pain. A water-based lubricant such as K-Y jelly or Astroglide may be used. * If you have RH negative blood and your baby is RH positive, you will receive RHOGAM by injection prior to discharge. The nurse will give you a card to keep with you that has the date and place that you received RHOGAM after delivery. * During your care, you had a Rubella screen done to check for the presence of rubella antibodies in your blood. If your test was negative, you will receive a Rubella vaccine prior to discharge. This vaccine may cause a fever, soreness at the injection site and flu-like symptoms. If these symptoms persist, notify your health care practitioner. is not advised for one month after a Rubella vaccine. * Verbalizes understanding of car seat law as reviewed with patient nursing. * Car Seat hand-out given and reviewed with patient by nursing. * Shaken baby information reviewed with patient by nursing. Call you doctor if: * Heavy bleeding (saturating several pads an hour) or passing clots the size of your fist. * A fever >101 degrees F (38.3 degrees C) on two occasions four hours apart and /or chills. * Unusual pain in the pelvic or vaginal areas. * "Baby Blues" lasting longer than two weeks. If you have any questions or concerns, call your health care practitioner at . FOLLOW UP VISIT: * Please call the office at to schedule a 6 week examination. It is important you keep this appointment. It is important for you to make arrangements for either yearly or twice yearly check-ups thereafter. Current Hospital Diet Patient's current hospital diet: Regular OB Diet Discharge Diet Recommended Diet: Regular Diet Pending Studies Studies pending at discharge: no Medical Emergencies . Who to Call and When: Medical Emergencies: If at any time you feel your situation is an emergency, please call [phone] immediately. . Non-Emergent Contact Non-Emergency issues call your: Primary Care Provider . . "Provider Documentation" section prepared by Rebecca Trevizo. .
[2018-04-14 07:10] LABS: HEMATOCRIT 29.7 % (37-47); HEMOGLOBIN 10.2 g/dL (12.0-16.0)
[2018-04-14 07:57] VITALS: BP 99/63; PULSE 79; TEMP 36.7
[2018-04-14] MEDS ORDERED: PRENATAL VITAMIN TAB PO SCH (08:00)
[2018-04-14 08:30] VITALS: O2SAT 97
[2018-04-14] MEDS: IBUPROFEN 600 MG TAB PO PRN ×2 (08:53→12:39)
[2018-04-14] MEDS: PRENATAL VITAMIN TAB PO SCH (08:54)
[2018-04-14] MEDS: DOCUSATE SODIUM 100 MG CAP PO SCH ×2 (08:54→20:06)
[2018-04-14 11:15] VITALS: BP 112/73; PULSE 93; TEMP 36.9; O2SAT 97
[2018-04-14 15:25] VITALS: BP 111/69; PULSE 87; TEMP 36.6; O2SAT 96
[2018-04-14] MEDS ORDERED: BISACODYL 5 MG TABEC PO SCH (20:00)
[2018-04-15] VITALS: BP 108/67; PULSE 87; TEMP 36.5; O2SAT 96
[2018-04-15] MEDS: IBUPROFEN 600 MG TAB PO PRN ×2 (00:06→08:55)
[2018-04-15] MEDS ORDERED: BISACODYL 10 MG SUPP PR PRN (07:00)
[2018-04-15 08:14] VITALS: BP 112/73; PULSE 66; TEMP 36.5
[2018-04-15] MEDS: PRENATAL VITAMIN TAB PO SCH (08:54)
[2018-04-15] MEDS: DOCUSATE SODIUM 100 MG CAP PO SCH (08:54)
--- NOTE | 2018-04-15 08:57 | Progress Note ---
Subjective April 15, 2018. Subjective conversation w/ patient, physical exam Ambulation: ambulating normally Voiding: no voiding problems, voiding difficulty (does not feel she is emptying bladder well since yesterday afternoon. straight cath this morning is 350cc) Diet Tolerance: Regular Diet Lochia: Small Review of Systems Constitutional: No fever, No chills, No sweats, No weight loss, No weakness, No fatigue, No problem reported Breast: No see HPI, No breast lump, No change in shape, No nipple discharge, No breast pain, No problem reported Abdomen: No pain, No nausea, No vomiting, No diarrhea, No constipation, No GI bleeding, No problem reported Objective Vital Signs Date Time Temp Pulse Resp B/P (MAP) Pulse Ox O2 Delivery O2 Flow Rate FiO2 04/15/18 08:14 36.5 66 18 112/73 (86) Room Air 04/15/18 00:00 36.5 87 16 108/67 (81) 96 Room Air 04/15/18 00:00 Room Air 04/14/18 15:25 36.6 87 16 111/69 (83) 96 Room Air 04/14/18 15:25 96 Room Air 04/14/18 11:15 36.9 93 18 112/73 (86) 97 Room Air Physical Exam General Appearance: WELL-APPEARING, NO APPARENT DISTRESS Abdomen: non tender, soft Fundus: Firm, Non-Tender, Relation to Umbilicus (2 below U) Extremities: no calf tenderness Assessment and Plan Problem List Medical Problems: (1) Blurred vision Status: Acute (2) Dyspnea Status: Acute (3) Dyspnea Status: Acute (4) Status: Acute (5) SOB (shortness of breath) Status: Acute (6) Substernal precordial chest pain Status: Acute Post- Day#: 2 Continue Routine Care: small urinary residual will check urine output prior to discharge since it has not been documented yesterday. plan is to discharge after check urine output
[2018-04-15 14:00] VITALS: BP_DIAS 73; PULSE 66; TEMP 36.5
== END 2018-04-15 14:00 | disposition home or self-care (01) | DRG 775 ==
LOC: C.OPB 01:22 → C.LD 01:23 → C.OPB 02:25 → C.OBG 20:12
PROVIDERS: ADMIT Obstetrics & Gynecology; ATTEND Obstetrics & Gynecology
PROC: 0KQM0ZZ Repair Perineum Muscle, Open Approach (ICD-10-PCS; principal; 2018-04-13)
PROC: 10D07Z6 Extraction of Products of Conception, Vacuum, Via Natural or Artificial Opening (ICD-10-PCS; principal; 2018-04-13)
DX: O75.81 Maternal exhaustion complicating labor and delivery (principal); O70.1 Second degree perineal laceration during delivery; O24.420 Gestational diabetes mellitus in childbirth, diet controlled; O09.523 Supervision of elderly multigravida, third trimester; R39.198 Other difficulties with micturition; Z3A.39 39 weeks gestation of pregnancy; Z37.0 Single live birth

== ENCOUNTER → 2018-07-09 | Outpatient (CLI) | payer OTHER | END | disposition home or self-care (01) | LOC: C.LAB1850 08:38 | PROVIDERS: ATTEND Obstetrics & Gynecology | DX: O24.410 Gestational diabetes mellitus in pregnancy, diet controlled (principal); Z3A.00 Weeks of gestation of pregnancy not specified ==